=== PATIENT | male | born 1995 | race Caucasian/White ===

== ENCOUNTER 2020-02-17 03:37 | Emergency (ER) | payer BC, OTHER, SELFPAY ==
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
[2020-02-17 03:40] VITALS: BP 120/65; PULSE 122; RESP 20; TEMP 36.6; O2SAT 98
[2020-02-17] MEDS: KETOROLAC (*BKC) 60 MG/2 ML VIAL IM (04:02)
[2020-02-17 04:41] LABS: Add Urine Microscopic? YES; Appearance Urine Clear (Clear); Bilirubin Urine Negative (Negative); Blood Urine 1+ (Negative); Color Urine Yellow (Yellow); Glucose Urine UA Negative (Negative); Ketones Urine Negative (Negative); Leukocyte Esterase Ur Negative (Negative); Nitrate Urine Negative (Negative); Protein Urine Negative (Negative); Urobilinogen Urine 0.2 mg/dL (0.2-1.0)
[2020-02-17 04:51] LABS: Bacteria Urine None seen /hpf; RBC Urine 0-2 /hpf (0-2); Squamous Epithelial Cell Urine None seen /hpf (Few); WBC Urine 0-3 /hpf (0-3)
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
[2020-02-17] MEDS: HYDROcodone/acetaminophen (*CRX) 5-325 MG TABLET 1 TAB PO (05:42)
[2020-02-17 05:47] VITALS: BP 135/78; PULSE 110; RESP 20; O2SAT 100
== END 2020-02-17 05:53 | disposition home or self-care (01) ==
PROVIDERS: Emergency Provider Emergency Medicine
DX: S32.020A Wedge compression fracture of second lumbar vertebra, initial encounter for closed fracture (principal); V89.2XXA Person injured in unspecified motor-vehicle accident, traffic, initial encounter
CPT/HCPCS: 72125; 72128; 72131; 81001; 96372; 99283; 99284; A9270; J1885